=== PATIENT | female | born 1955 ===

== ENCOUNTER 2024-09-01 06:28 | Day surgery (SDC) | payer OTHER, SELFPAY ==
[2024-09-01 12:11] LABS: Glucose - Point of Care 107 mg/dl (70-99)
== END 2024-09-01 14:01 | disposition home or self-care (01) ==
LOC: GI 06:28
PROVIDERS: ATTENDING PHYSICIAN Student in an Organized Health Care Education/Training Program
DX: D50.9 Iron deficiency anemia, unspecified (principal); K64.4 Residual hemorrhoidal skin tags; K57.30 Diverticulosis of large intestine without perforation or abscess without bleeding; K25.9 Gastric ulcer, unspecified as acute or chronic, without hemorrhage or perforation; K44.9 Diaphragmatic hernia without obstruction or gangrene; Q39.9 Congenital malformation of esophagus, unspecified; K20.90 Esophagitis, unspecified without bleeding; D12.3 Benign neoplasm of transverse colon; K31.89 Other diseases of stomach and duodenum
CPT/HCPCS: 45385; 43239; 88305; 82962; 88342

== ENCOUNTER 2024-11-24 06:23 | Day surgery (SDC) | payer OTHER, SELFPAY ==
[2024-11-24 08:20] LABS: Glucose - Point of Care 104 mg/dl (70-99)
== END 2024-11-24 10:23 | disposition home or self-care (01) ==
LOC: GI 06:23
PROVIDERS: ATTENDING PHYSICIAN Student in an Organized Health Care Education/Training Program
DX: K25.9 Gastric ulcer, unspecified as acute or chronic, without hemorrhage or perforation (principal); Q39.9 Congenital malformation of esophagus, unspecified; K44.9 Diaphragmatic hernia without obstruction or gangrene; K31.7 Polyp of stomach and duodenum; K31.89 Other diseases of stomach and duodenum
CPT/HCPCS: 43239; 82962; 88305

== ENCOUNTER 2024-12-31 06:04 | Day surgery (SDC) | payer OTHER, SELFPAY ==
[2024-12-31 11:05] VITALS: BMI 24.1
[2024-12-31 11:09] VITALS: BMI 24.1
[2024-12-31 11:12] VITALS: BP 133/84
[2024-12-31 11:42] LABS: Glucose - Point of Care 107 mg/dl (70-99)
[2024-12-31 15:04] VITALS: BP 122/83
[2024-12-31 15:15] VITALS: BP 143/81
[2024-12-31 15:30] VITALS: BP 155/87
== END 2024-12-31 15:55 | disposition home or self-care (01) ==
LOC: GI 06:04
PROVIDERS: ATTENDING PHYSICIAN Internal Medicine Gastroenterology
DX: K31.7 Polyp of stomach and duodenum (principal); K44.9 Diaphragmatic hernia without obstruction or gangrene; K31.1 Adult hypertrophic pyloric stenosis; D13.2 Benign neoplasm of duodenum
CPT/HCPCS: 43251; 82962; 88305